=== PATIENT | female | born 1955 | race Two or more races ===

== ENCOUNTER 2022-12-08 12:05 | Emergency (ER) | payer OTHER ==
[~2022-12-08] VITALS: Ht 149.9 cm; Wt 87.0 kg
[2022-12-08 13:06] LABS: Basophils # (auto) 0.1 10 ^3/uL (0-0.2); Eosinophils # (auto) 0.2 10 ^3/uL (0-0.8); Lymphocytes # (auto) 2.6 10 ^3/uL (0.4-5.4); Mean Corpuscular Hgb Conc. 32.3 g/dL (32.0-36.0); Neutrophils # (auto) 6.1 10 ^3/uL (1.6-8.6); Red Cell Distribution Width 15.3 % (11.8-14.3)
[2022-12-08 13:07] LABS: Basophils % (auto) 1.1 % (0.0-2.0); Eosinophils % (auto) 2.1 % (0.0-7.0); Hemoglobin 13.6 g/dL (12.2-16.2); Lymphocytes % (auto) 27.6 % (10.0-50.0); Mean Corpuscular Volume 80.5 fL (80.0-100.0); Monocytes # (auto) 0.5 10 ^3/uL (0-1.3); Neutrophils % (auto) 64.2 % (37.0-80.0); Red Blood Cells 5.21 10^6/uL (4.0-5.20); White Blood Cell 9.5 10^3/uL (4.4-10.8)
[2022-12-08 13:20] LABS: INR 1.03 (0.9-1.15); Partial Thromboplastin Time 29.6 SEC (24.5-34.5); Prothrombin Time 10.8 sec (9.3-11.8)
[2022-12-08 14:12] LABS: Alanine Aminotransferase 59 U/L (7-40); Albumin 4.3 g/dL (3.2-4.8); Alkaline Phosphatase 100 U/L (46-116); Anion Gap 5 (5-15); Aspartate Aminotransferase 53 U/L (13-40); BUN/Creatinine Ratio 14.3 (10.0-20.0); Bilirubin, Total 0.5 mg/dL (0.2-1.0); Blood Urea Nitrogen 10 mg/dL (9-23); Calcium 9.4 mg/dL (8.5-10.1); Carbon Dioxide 30 mmol/L (20-30); Chloride 102 mmol/L (98-107); Glucose 135 mg/dL (74-106); Potassium 3.9 mmol/L (3.5-5.1); Sodium 137 mmol/L (136-145); Total Protein 7.1 g/dL (5.7-8.2)
[2022-12-08 17:09] VITALS: BP 147/75; PULSE 86; RESP 18; TEMP 98.2; O2SAT 97
== END 2022-12-08 17:12 | disposition home or self-care (01) ==
LOC: ER 12:05
DX: I10 Essential (primary) hypertension (principal); R51.9 Headache, unspecified; R42 Dizziness and giddiness; Z88.6 Allergy status to analgesic agent; Z79.01 Long term (current) use of anticoagulants
CPT/HCPCS: 36415; 70450; 71045; 80053; 84484; 85025; 85610; 85730; 93005

== ENCOUNTER → 2024-02-28 | Outpatient (CLI) | payer MEDICARE ==
[2024-02-28 11:27] LABS: Basophils # (auto) 0.1 10 ^3/uL (0-0.2); Basophils % (auto) 1.1 % (0.0-2.0); Eosinophils # (auto) 0.3 10 ^3/uL (0-0.8); Hemoglobin 14.5 g/dL (12.2-16.2); Lymphocytes # (auto) 2.3 10 ^3/uL (0.4-5.4); Monocytes # (auto) 0.3 10 ^3/uL (0-1.3); Nucleated Red Blood Cells % 0.1 %
[2024-02-28 11:29] LABS: Eosinophils % (auto) 3.9 % (0.0-7.0); Lymphocytes % (auto) 32.1 % (10.0-50.0); Mean Corpuscular Hemoglobin 26.3 pg (28.0-32.0); Mean Corpuscular Volume 79.6 fL (80.0-100.0); Monocytes % (auto) 4.1 % (0.0-12.0); Neutrophils # (auto) 4.2 10 ^3/uL (1.6-8.6); Neutrophils % (auto) 58.8 % (37.0-80.0); Platelet Count (auto) 334 10^3/uL (140-450); Red Blood Cells 5.53 10^6/uL (4.0-5.20); White Blood Cell 7.1 10^3/uL (4.4-10.8)
[2024-02-28 11:37] LABS: Urine Blood Negative /uL (Negative); Urine Clarity Turbid (Clear); Urine Color Yellow (Yellow); Urine Protein, UAD 1+ (Negative); Urine Specific Gravity 1.021 (1.001-1.035); Urine Urobilinogen Normal (Negative); Urine pH 6.5 (5.0-9.0)
[2024-02-28 11:44] LABS: Alanine Aminotransferase 22 U/L (7-40); Albumin 4.6 g/dL (3.2-4.8); Alkaline Phosphatase 110 U/L (46-116); Anion Gap 5 (5-15); Aspartate Aminotransferase 23 U/L (13-40); BUN/Creatinine Ratio 12.3 (10.0-20.0); Bilirubin, Total 0.5 mg/dL (0.2-1.0); Blood Urea Nitrogen 9 mg/dL (9-23); Calcium 10.4 mg/dL (8.7-10.4); Carbon Dioxide 30 mmol/L (20-31); Chloride 104 mmol/L (98-107); Sodium 139 mmol/L (136-145); Total Protein 7.8 g/dL (5.7-8.2)
[2024-02-28 11:49] LABS: Cholesterol 252 mg/dL (< 200); Glucose 108 mg/dL (74-106)
[2024-02-28 11:50] LABS: HDL Cholesterol 62 mg/dL (40-59); LDL Cholesterol 169 mg/dL (< 100); Triglycerides 167 mg/dL (< 150)
[2024-02-28 12:28] LABS: Erythrocyte Sedimentation Rate 32 mm/hr (0-20)
[2024-02-28 12:42] LABS: Uric Acid 5.1 mg/dL (3.1-7.8)
[2024-02-29 07:06] LABS: Thyroid Peroxidase (TPO) Ab 12 IU/mL (0-34)
[2024-02-29 08:06] LABS: Complement C3 196 mg/dL (82-167); Rheumatoid Arthritis Factor 10.2 IU/mL (<14.0)
[2024-02-29 12:06] LABS: Anti-Nuclear Antibody Direct Negative (Negative); Anti-dsDNA Antibody <1 IU/mL (0-9); Antiscleroderma-70 Antibody <0.2 AI (0.0-0.9); RNP Antibody <0.2 AI (0.0-0.9); Sjogren's Anti-SS-A Antibody <0.2 AI (0.0-0.9); Sjogren's Anti-SS-B Antibody <0.2 AI (0.0-0.9); Smith Antibody <0.2 AI (0.0-0.9)
[2024-03-01 16:06] LABS: Actin (Smooth Muscle) Antibody 7 Units (0-19); Mitochondrial (M2) Antibody <20.0 Units (0.0-20.0)
[2024-03-03 09:06] LABS: Antiparietal Cell Antibody 1.4 Units (0.0-20.0)
== END | disposition home or self-care (01) ==
LOC: LAB 10:55
PROVIDERS: ATTEND Student in an Organized Health Care Education/Training Program
DX: I10 Essential (primary) hypertension (principal); R73.9 Hyperglycemia, unspecified; M25.50 Pain in unspecified joint; E55.9 Vitamin D deficiency, unspecified
CPT/HCPCS: 36415; 80053; 80061; 81003; 82306; 83036; 84443; 84550; 85025; 85652; 86160; 86225; 86235; 86376; 86431

== ENCOUNTER 2024-09-16 09:26 | Outpatient (CLI) | payer OTHER ==
[2024-09-16 11:00] LABS: Alanine Aminotransferase 18 U/L (7-40); Albumin 5.0 g/dL (3.2-4.8); Alkaline Phosphatase 108 U/L (46-116); Anion Gap 10 (5-15); BUN/Creatinine Ratio 14.3 (10.0-20.0); Blood Urea Nitrogen 11 mg/dL (9-23); Calcium 11.0 mg/dL (8.7-10.4); Carbon Dioxide 29 mmol/L (20-31); Chloride 102 mmol/L (98-107); Cholesterol 258 mg/dL (< 200); Glucose 108 mg/dL (74-106); HDL Cholesterol 63 mg/dL (40-59); Potassium 4.0 mmol/L (3.5-5.1); Sodium 141 mmol/L (136-145); Total Protein 8.0 g/dL (5.7-8.2); Triglycerides 176 mg/dL (< 150)
[2024-09-16 11:01] LABS: Bilirubin, Total 0.5 mg/dL (0.2-1.0)
[2024-09-16 11:34] LABS: Uric Acid 5.6 mg/dL (3.1-7.8)
[2024-09-16 12:21] LABS: Microalb/Creat Ratio, Urine 67.0
[2024-09-17 07:07] LABS: Hepatitis B Core Total Antibod Negative (Negative)
[2024-09-17 10:36] LABS: Hepatitis C Antibody Negative (Negative)
== END 2024-09-16 19:32 | disposition home or self-care (01) ==
LOC: LAB 09:26
PROVIDERS: ATTEND Student in an Organized Health Care Education/Training Program
DX: I10 Essential (primary) hypertension (principal); E11.9 Type 2 diabetes mellitus without complications; M79.7 Fibromyalgia; M15.0 Primary generalized (osteo)arthritis
CPT/HCPCS: 36415; 80053; 80061; 82043; 82570; 83036; 84550; 85652; 86141; 86200; 86705; 86803

== ENCOUNTER 2024-11-13 10:36 | Outpatient (CLI) | payer OTHER ==
[2024-11-13] MEDS ORDERED: ESOM20CA PO (10:56)
[2024-11-13] MEDS ORDERED: LOSA-534 PO (10:56)
[2024-11-13] MEDS ORDERED: ATOR10TA52 PO (10:56)
[2024-11-13] MEDS ORDERED: METF-490 PO (10:56)
[2024-11-13 11:11] LABS: Nucleated Red Blood Cells % 0.1 %
[2024-11-13 11:13] LABS: Hematocrit 45.5 % (36.0-46.0); Hemoglobin 14.9 g/dL (12.2-16.2); Mean Corpuscular Hemoglobin 25.9 pg (28.0-32.0); Mean Corpuscular Volume 78.8 fL (80.0-100.0)
[2024-11-13 11:15] LABS: Urine Protein, UAD Negative (Negative)
[2024-11-13 11:27] LABS: Alanine Aminotransferase 16 U/L (7-40); Albumin 4.6 g/dL (3.2-4.8); Alkaline Phosphatase 100 U/L (46-116); Anion Gap 9 (5-15); BUN/Creatinine Ratio 16.7 (10.0-20.0); Blood Urea Nitrogen 10 mg/dL (9-23); Calcium 9.7 mg/dL (8.7-10.4); Carbon Dioxide 30 mmol/L (20-31); Chloride 102 mmol/L (98-107); Cholesterol 152 mg/dL (< 200); Glucose 93 mg/dL (74-106); HDL Cholesterol 54 mg/dL (40-59); Potassium 3.7 mmol/L (3.5-5.1); Sodium 141 mmol/L (136-145); Total Protein 7.9 g/dL (5.7-8.2); Triglycerides 121 mg/dL (< 150)
[2024-11-13 11:28] LABS: Bilirubin, Total 0.5 mg/dL (0.2-1.0)
[2024-11-13 12:03] LABS: Microalb/Creat Ratio, Urine 92.0
== END 2024-11-13 17:00 | disposition home or self-care (01) ==
LOC: LAB 10:36
PROVIDERS: ATTEND Nurse Practitioner Family
DX: I10 Essential (primary) hypertension (principal); E78.5 Hyperlipidemia, unspecified; E55.9 Vitamin D deficiency, unspecified
CPT/HCPCS: 36415; 80053; 80061; 81001; 82043; 82306; 82570; 83036; 84443; 85025

== ENCOUNTER → 2024-11-15 | Day surgery (SDC) | payer OTHER ==
[2024-11-13 11:12] LABS: Mean Corpuscular Hemoglobin 26.0 pg (28.0-32.0)
[2024-11-13 11:15] LABS: Hematocrit 44.6 % (36.0-46.0); Hemoglobin 14.8 g/dL (12.2-16.2); Mean Corpuscular Volume 78.1 fL (80.0-100.0); Nucleated Red Blood Cells % 0.2 %
[2024-11-13 11:24] LABS: INR 1.03 (0.9-1.15); Partial Thromboplastin Time 31.3 SEC (24.5-34.5); Prothrombin Time 10.9 sec (9.3-11.8)
[~2024-11-15] VITALS: Ht 152.4 cm; Wt 81.6 kg
[~2024-11-15] MED LIST: ATOR10TA52 PO; ESOM20CA PO; FLUMAZENIL 0.1 MG/ML INJ 10ML MDV IV ONE; LOSA-534 PO; METF-490 PO; NALOXONE HCL 0.4 MG/ML VIAL ONE
[2024-11-15] MEDS: fentaNYL CITRATE 100 MCG/2 ML VL ONE (07:54)
[2024-11-15] MEDS: MIDAZOLAM HCL 2MG/2ML 2ml VIAL (1mg/ml) ONE ×2 (07:54→08:08)
--- NOTE | 2024-11-15 08:29 | DVHNC2 ---
Procedure - DATE OF PROCEDURE: 2024 SURGEON: DOREEN STEPHENSON MD REFERRING PROVIDER: DESIREE LORA MD PROCEDURE PERFORMED: 1. ESOPHAGOGASTRODUODENOSCOPY WITH BIOPSY UNDER CONSCIOUS SEDATION 2. COLONOSCOPY WITH COLD BIOPSY POLYPECTOMY UNDER CONSCIOUS SEDATION PRE-PROCEDURE DIAGNOSIS: 1. GERD 2. COLON CANCER SCREENING POSTPROCEDURE DIAGNOSIS 1. MILD EROSIVE ESOPHAGITIS , Z-LINE AT 36 CM 2. MILD EROSIVE GASTRITIS 3. HIATAL HERNIA 2 CM 4. INTERNAL HEMORRHOIDS 5. DIVERTICULOSIS, MILD 6. INCOMPLETE COLONOSCOPY TO HEPATIC FLEXURE DUE TO TORTUOSITY 7. SMALL RECTAL POLYP MEDICATIONS USED: 6 MG OF VERSED IV AND 100 MCG OF FENTANYL IV DETAILS OF THE PROCEDURE: Informed consent was obtained after risks, benefits, and alternatives, were discussed at length with the patient. The patient gave consent to the procedure as well as the medication used for sedation. The patient was placed in the left lateral decubitus position. An Olympus endoscope was inserted into the oropharynx and advanced into the esophagus, then into the stomach, then into the duodenal bulb and duodenum. The duodenal bulb and duodenum were normal. The scope was then withdrawn. The patient had mild erosive gastritis, biopsies were taken. The scope was then withdrawn retroflexion showed a small hiatal hernia. The scope was then withdrawn the Z-line was at 36 cm. The patient had mild erosive esophagitis. The scope was then withdrawn and procedure completed. The patient tolerated procedure well The patient remained in the left lateral decubitus position. Digital rectal exam showed internal and external hemorrhoids. An Olympus variable torsion pediatric colonoscope was inserted into the rectum and advanced to the sigmoid colon. The colon was tortuous. I was not able to advance the scope safely beyond this point despite pressure and changing the patient's position. The scope was then withdrawn and an Olympus endoscope was then inserted into the rectum and advanced to the hepatic flexure. I was not able to advance the scope beyond the hepatic flexure. The scope was then withdrawn. The patient had mild diverticulosis. There was tortuosity seen once again in the sigmoid colon there were no large polyps, masses, strictures or arteriovenous malformation seen. Patient had a 3 mm polyp seen on retroflexion removed with cold biopsy forceps. Patient also had small internal hemorrhoids. The patient tolerated the procedure well IMPRESSION: 1. MILD EROSIVE ESOPHAGITIS LA GRADE A, Z-LINE AT 36 CM 2. SMALL HIATAL HERNIA 3. MILD GASTRITIS 4. INCOMPLETE COLONOSCOPY TO THE HEPATIC FLEXURE DUE TO TORTUOSITY AND LIKELY PRIOR ABDOMINAL SURGERY WITH ADHESIONS. 5. SMALL INTERNAL HEMORRHOIDS 6. RECTAL POLYP RECOMMENDATIONS: 1. FOLLOW UP IN GI CLINIC FOR PROCEDURE AND PATHOLOGY RESULTS 2. PROTON PUMP INHIBITOR DAILY 3. ANTI-REFLUX PRECAUTIONS, WEIGHT LOSS, AVOID CAFFEINE AND SPICY FOOD, ALCOHOL, TOMATOES AND CITRUS 4. REPEAT COLONOSCOPY IN FIVE YEARS IF THE POLYP IS ADENOMATOUS AND 10 YEARS IF HYPERPLASTIC UNLESS OTHERWISE INDICATED BY BARIUM ENEMA 5. PATIENT WILL NEED BARIUM ENEMA FOR COMPLETENESS TO EVALUATE THE RIGHT COLON THAT WAS NOT SEEN DUE TO INCOMPLETE COLONOSCOPY I WOULD LIKE TO THANK DR. DESIREE LORA FOR THIS REFERRAL DOREEN STEPHENSON MD Nov 15, 2024 08:29
[2024-11-15 08:34] VITALS: PULSE 69; RESP 12; TEMP 97; O2SAT 95
[2024-11-15 09:15] VITALS: BP 140/71; PULSE 68; RESP 14; O2SAT 97
== END | disposition home or self-care (01) ==
LOC: GI 06:59
PROVIDERS: ATTEND Specialist
DX: Z12.11 Encounter for screening for malignant neoplasm of colon (principal); K62.1 Rectal polyp; K57.30 Diverticulosis of large intestine without perforation or abscess without bleeding; K64.8 Other hemorrhoids; K63.89 Other specified diseases of intestine; K29.50 Unspecified chronic gastritis without bleeding; K21.9 Gastro-esophageal reflux disease without esophagitis; K44.9 Diaphragmatic hernia without obstruction or gangrene; K22.10 Ulcer of esophagus without bleeding; I10 Essential (primary) hypertension; J45.909 Unspecified asthma, uncomplicated; E11.9 Type 2 diabetes mellitus without complications; M19.90 Unspecified osteoarthritis, unspecified site; F43.10 Post-traumatic stress disorder, unspecified; E78.00 Pure hypercholesterolemia, unspecified; Z79.899 Other long term (current) drug therapy; Z98.890 Other specified postprocedural states; Z88.0 Allergy status to penicillin; Z88.8 Allergy status to other drugs, medicaments and biological substances; Z88.5 Allergy status to narcotic agent
CPT/HCPCS: 43239; 45380; 82962; 85610; 85730; 88305; 88342; J2250; J3010; 99152; 99153

== ENCOUNTER 2025-01-02 13:45 | Emergency (ER) | payer OTHER ==
[~2025-01-02] VITALS: Ht 154.9 cm; Wt 81.8 kg
[~2025-01-02 13:45] MED LIST changes: -FLUMAZENIL 0.1 MG/ML INJ 10ML MDV IV ONE; -NALOXONE HCL 0.4 MG/ML VIAL ONE
--- NOTE | 2025-01-02 14:26 | ED.PDOC ---
Eye-HPI HPI Comments A 69 YEAR OLD FEMALE PRESENTS TO THE ED WITH COMPLAINT OF BILATERAL EAR PAIN, SORE THROAT, AND LEFT EYE REDNESS. PATIENT STATES SHE HAS BEEN EXPERIENCING BILATERAL EAR PAIN AND A SORE THROAT OFTEN THE PAST 1 MONTH. PATIENT REPORTS SHE HAS BEEN PRESCRIBED ANTIBIOTICS FOR THIS ISSUE, BUT NOTES THERE HAS BEEN NO IMPROVEMENT. PATIENT NOTES THAT SHE BEGAN TO EXPERIENCE LEFT EYE REDNESS AND IRRITATION OVER THE LAST 2 DAYS. PATIENT DENIES VISION CHANGES, FEVER, CHILLS, SHORTNESS OF BREATH, CHEST PAIN, ABDOMINAL PAIN, NAUSEA, VOMITING, HEADACHE, OR OTHER COMPLAINTS. NO OTHER SYMPTOMS OR MODIFYING FACTORS AT THIS TIME. PATIENT IS ALERT, ORIENTED X 4, AND HAS STEADY GAIT. Chief Complaint: Earache Time Seen by MD: 13:58 Primary Care Provider: unknown Reviewed Notes: Nurses Notes, Medications, Allergies Allergies: Coded Allergies: Morphine (Verified Allergy, Mild, 12/08/22) Promethazine (Verified Allergy, Mild, 12/08/22) Uncoded Allergies: PENICILLIN (Allergy, Mild, 12/08/22) Home Meds Active Scripts Prednisone (Prednisone) 20 Mg Tab, 40 MG PO DAILY, #20 TAB Prov:ALE LEZAMA 01/02/25 Acetaminophen (Tylenol Extra Strength Fo) 500 Mg Tab, 1000 MG PO BID, #30 TAB Prov:ALE LEZAMA 01/02/25 Sulfamethoxazole W/Trimethopri (Bactrim Ds Tablet) 1 Tab Tb, 1 TAB PO BID for 10 Days, #20 TAB Prov:ALE LEZAMA 01/02/25 Reported Medications Metformin Hydrochloride (METFORMIN HCL ER) 1,000 Mg Tab, 1 TAB PO DAILY, #90 TAB 3 Refills 11/13/24 Esomeprazole Magnesium Trihydr (Nexium) 20 Mg Cap, 1 CAP PO DAILY, #90 CAP 3 Refills 11/13/24 Losartan Potassium (Losartan Potassium) 50 Mg Tab, 1 TAB PO DAILY, #90 TAB 3 Refills 11/13/24 Atorvastatin Calcium (ATORVASTATIN CALCIUM) 10 Mg Tab, 1 TAB PO DAILY, #90 TAB 3 Refills 11/13/24 Information Source: Patient Mode of Arrival: Ambulatory Timing: Days, Weeks Duration: Since onset, Days Prehospital treatment: None Quality: Pain, Red Eye Location: Left Lids: Normal Conjunctiva: Normal Cornea: Normal EOM: Normal Fundus: Normal Anterior chamber: Normal Mouth Location: Pharynx Mouth: Normal ENT Ear Exam: Normal, Red, Bulging, Normal Nose: Normal Sinuses: Normal Oropharynx: Tonsillar hypertrophy, Red Onset: Spontaneous Throat Exposed to: None History of: None Last Tetanus: Unknown Modifying factors: Nothing Associated signs and symptoms: Sore Throat, Ear Pain Past Medical History PAST MEDICAL HISTORY: HTN Surgical History: Denies all surgeries MANAGER COSTING History: Denies all MANAGER COSTING Hx Family History Family History: Reviewed,noncontributory to illness Social History Smoker: Non-Smoker Alcohol: Denies ETOH Use Drugs: Denies Drug Use Lives In: Home Constitutional: denies: chills, diaphoresis, fatigue, fever, malaise, sweats, weakness, others EENTM: reports: ear pain, ear ringing, eye redness, throat pain, throat swelling; denies: blurred vision, double vision, ear bleeding, ear discharge, ear drainage, eye pain, hearing loss, mouth pain, mouth swelling, nasal discharge, nose bleeding, nose congestion, nose pain, photophobia, tearing, voice changes, others Respiratory: denies: cough, hemoptysis, orthopnea, SOB at rest, shortness of breath, SOB with excertion, stridor, wheezing, others Cardiovascular: denies: chest pain, dizzy spells, diaphoresis, Dyspnea on exertion, edema, irregular heart beat, left arm pain, lightheadedness, palpitations, PND, syncope, others Gastrointestinal: denies: abdomen distended, abdominal pain, blood streaked bowels, constipated, diarrhea, dysphagia, difficulty swallowing, hematemesis, melena, nausea, poor appetite, poor fluid intake, rectal bleeding, rectal pain, vomiting, others Genitourinary: denies: abnormal vagina bleeding, burning, dyspareunia, dysuria, flank pain, frequency, hematuria, incontinence, pain, , vagina discharge, urgency, others Neurological: denies: dizziness, fainting, headache, left sided numbness, left sided weakness, numbness, paresthesia, pre-existing deficit, right sided numbness, right sided weakness, seizure, speech problems, tingling, tremors, weakness, others Musculoskeletal: denies: back pain, gout, joint pain, joint swelling, muscle pain, muscle stiffness, neck pain, others Integumetry: denies: bruises, change in color, change in hair/nails, dryness, laceration, lesions, lumps, rash, wounds, others Allergic/Immunocompromised: denies: Difficulty Healing, Frequent Infections, Hives, Itching, others Hematologic/Lymphatic: denies: anemia, blood clots, easy bleeding, easy bruising, swollen glands, others Endocrine: denies: excessive hunger, excessive sweating, excessive thirst, excessive urination, flushing, intolerance to cold, intolerance to heat, unexplained weight gain, unexplained weight loss, others Psychiatric: denies: anxiety, bipolar disorder, depression, hopeless, panic disorder, schizophrenia, sleepless, suicidal, others All Other Systems: Reviewed and Negative Physical Exam General Appearance: No Apparent Distress, Normal HEENT: PERRL/EOMI, Pharyngeal Erythema (TONSILLAR SWELLING, NO EXUDATES. ), TM Abnormal (L) (MILD ERYTHEMA AND DULL WITH EFFUSION OF LEFT TM, NO BLEEDING AND BLOOD CLOTS. ), TM Abnormal (R) (ERYTHEMA AND DULL WITH EFFUSION OF RIGHT TM, NO BLEEDING AND BLOOD CLOTS. ), Other (LEFT SUBCONJUNCTIVA HEMORRHAGE WITH GREEN DISCHARGE. ) Neck: Full Range of Motion, Non-Tender, Normal, Normal Inspection Respiratory: Chest Non-Tender, Lungs Clear, No Accessory Muscle Use, No Respiratory Distress, Normal Breath Sounds Cardiovascular: No Edema, No JVD, No Murmur, No Gallop, Normal Peripheral Pulses, Regular Rate/Rhythm Breast Exam: Deferred Gastrointestinal: No Organomegaly, Non Tender, No Pulsatile Mass, Normal Bowel Sounds, Soft Genitalia: Deferred Pelvic: Deferred Rectal: Deferred Extremities: No calf tenderness, Normal capillary refill, Normal inspection, Normal range of motion, Non-tender, No pedal edema Musculoskeletal : Apperance: Normal Neurologic: Alert, roll sheeting cutter II-XII nml as Tested, No Motor Deficits, Normal Affect, Normal Mood, No Sensory Deficits Cerebellar Function: Normal Reflexes: Normal Skin: Dry, Normal Color, Warm Peripheral Pulses: 2+ carotid (R), 2+ carotid (L) Lymphatic: No Adenopathy Was a procedure done? Was a procedure done?: No EENT DIFF Eye: Conjunctivitis, Allergic, Bacterial, Viral, Hordeolum (stye) Ear: Cerumen Impaction, Otitis Externa, Otitis Media, Dental, Pharyngitis, Sinusitis Nose: N/A Mouth: N/A Sore Throat: Pharyngitis, Streptococcal, Viral Pharyngitis, URI X-Ray, Labs, Meds, VS Vital Signs Date Time Temp Pulse Resp B/P (MAP) Pulse Ox O2 Delivery O2 Flow Rate FiO2 01/02/25 13:46 98.5 92 18 128/90 97 98.5 Current Medications Medications (Trade) Dose Ordered Sig/Vahe Route Start Time Stop Time Status Last Admin Ceftriaxone Sodium (Rocephin) 1,000 mg ONCE ONCE IM 01/02/25 14:30 01/02/25 14:31 DC 01/02/25 14:48 Methylprednisolone Sodium Succinate (Solu Medrol) 125 mg ONCE ONCE IM 01/02/25 14:30 01/02/25 14:31 DC 01/02/25 14:49 X-Ray, Labs, Meds, VS Comment EXTERNAL MEDICAL RECORDS REVIEWED: [NONE] INDEPENDENT HISTORIANS: [NONE] SOCIAL DETERMINANTS OF HEALTH: [NONE] LABS ORDERED: NONE REVIEWED AND INTERPRETED RESULTS: NONE IMAGING ORDERED: NONE TREATMENTS ORDERED: ROCEPHIN 1 G IM PROCEDURES PERFORMED: NONE CRITICAL CARE TIME: NONE I HAVE DISCUSSED THE PATIENT WITH THE ATTENDING PHYSICIAN DR. BRUNNER AND HE AGREES WITH THE PATIENT'S PLAN OF CARE AND DISPOSITION. BASED ON HISTORY OF PRESENT ILLNESS, AND PHYSICAL EXAM, PATIENT WILL BE DISCHARGED HOME. DISCUSSED PLAN FOR DISCHARGE HOME WITH RX [PREDNISONE AND TOBREX EYEDROPS]. MEDICATION WARNINGS GIVEN. SHARED DECISION MAKING: PATIENT INSTRUCTED TO FOLLOW UP WITH PRIMARY CARE PROVIDER IN 1-2 DAYS FOR RE-EVALUATION OF SYMPTOMS. PATIENT VERBALIZES UNDERSTANDING TO RETURN TO ED FOR NEW OR WORSENING SYMPTOMS OR IF FOLLOW UP WITH PCP CANNOT BE OBTAINED. PATIENT FEELS COMFORTABLE GOING HOME AT THIS TIME. ALL QUESTIONS ADDRESSED AT TIME OF DISCHARGE. Time of 1ST Reevaluation: 15:11 Reevaluation 1ST: Improved Patient Education/Counseling: Diagnosis, Treatment, Need For Follow Up Family Education/Counseling: Diagnosis, Treatment, Need For Follow Up Medical Screening: No EMC Exist At This Time SEPSIS Sepsis Screen Date sepsis recognized/suspect: Jan 02, 2025 Time Sepsis recognized/suspect: 1348 Recent Procedure: No On Antibiotic Therapy: No Respiratory Rate >20: No Heart Rate >90: Yes Temp<36 C (96.8 F) or >38.3 C: No SBP <90 or MAP <65 mmHG: No New Acute Mental Status Change: No Is the patient on CPAP, BIPAP,: No Vital Signs Date Time Temp Pulse Resp B/P (MAP) Pulse Ox O2 Delivery O2 Flow Rate FiO2 01/02/25 13:46 98.5 92 18 128/90 97 98.5 Medications Medications Dose Ordered Sig/Vahe Route Start Time Stop Time Status Last Admin Dose Admin Ceftriaxone Sodium 1,000 mg ONCE ONCE IM 01/02/25 14:30 01/02/25 14:31 DC 01/02/25 14:48 Methylprednisolone Sodium Succinate 125 mg ONCE ONCE IM 01/02/25 14:30 01/02/25 14:31 DC 01/02/25 14:49 Departure 1 Departure Time of Disposition: 15:20 Impression: Primary Impression: Otitis media of both ears Qualified Codes: H65.06 - Acute serous otitis media, recurrent, bilateral Additional Impressions: Acute tonsillitis Qualified Codes: J03.90 - Acute tonsillitis, unspecified Acute conjunctivitis of left eye Qualified Codes: H10.32 - Unspecified acute conjunctivitis, left eye Disposition: HOME / SELF CARE / HOMELESS Condition: Stable Additional Instructions: FOLLOW-UP WITH PCP IN 1 TO 2 DAYS FOR REFERRAL TO ENT SPECIALIST. TAKE MEDICATIONS PRESCRIBED. RETURN TO ED FOR ANY NEW OR WORSENING SYMPTOMS. e-Prescriptions Tobramycin Sulfate (Tobrex) [address] 2 DROP OP QID, #5 ML Prov: ALE LEZAMA 01/02/25 Prednisone (Prednisone) 20 Mg Tab 40 MG PO DAILY, #20 TAB Prov: ALE LEZAMA 01/02/25 Acetaminophen (Tylenol Extra Strength Fo) 500 Mg Tab 1000 MG PO BID, #30 TAB Prov: ALE LEZAMA 01/02/25 Sulfamethoxazole W/Trimethopri (Bactrim Ds Tablet) 1 Tab Tb 1 TAB PO BID for 10 Days, #20 TAB Prov: ALE LEZAMA 01/02/25 Discharged With: Self Critical Care Note Critical Care Time?: No Stability Stability form required: No I personally scribed for ALE LEZAMA ([email or web address]) on 01/02/25 at 14:26. Electronically submitted by Shay Parham ([email or web address]). ALE LEZAMA Jan 02, 2025 14:26
[2025-01-02] MEDS: cefTRIAXone SOD 1,000 MG VL IM ONE (14:48)
[2025-01-02] MEDS: methylPREDNISolone SOD SUCC 125 MG/2 ML VL IM ONE (14:49)
[2025-01-02] MEDS ORDERED: ACET-1304 PO (15:03)
[2025-01-02] MEDS ORDERED: PRED20TA2 PO (15:03)
[2025-01-02] MEDS ORDERED: BACDST PO (15:03)
[2025-01-02 15:11] VITALS: BP 145/66; PULSE 91; RESP 18; TEMP 98.3; O2SAT 96
[2025-01-02] MEDS ORDERED: TOB03OS OP (15:12)
== END 2025-01-02 15:14 | disposition home or self-care (01) ==
LOC: ER 13:45
DX: H66.93 Otitis media, unspecified, bilateral (principal); H10.32 Unspecified acute conjunctivitis, left eye; J03.90 Acute tonsillitis, unspecified; I10 Essential (primary) hypertension; Z79.899 Other long term (current) drug therapy; Z79.84 Long term (current) use of oral hypoglycemic drugs; Z88.5 Allergy status to narcotic agent; Z79.52 Long term (current) use of systemic steroids; Z88.0 Allergy status to penicillin
CPT/HCPCS: 96372; 99284; J0696; J2919

== ENCOUNTER 2025-02-10 08:03 | Outpatient (CLI) | payer OTHER ==
[~2025-02-10 08:03] MED LIST changes: +ACET-1304 PO; +BACDST PO; +PRED20TA2 PO; +TOB03OS OP
[2025-02-10 08:34] LABS: Hematocrit 42.5 % (36.0-46.0); Hemoglobin 13.7 g/dL (12.2-16.2); Mean Corpuscular Hemoglobin 26.0 pg (28.0-32.0); Mean Corpuscular Volume 80.5 fL (80.0-100.0); Nucleated Red Blood Cells % 0.1 %
[2025-02-10 09:27] LABS: Urine Protein, UAD 1+ (Negative)
[2025-02-10 09:42] LABS: Alanine Aminotransferase 12 U/L (7-40); Alkaline Phosphatase 94 U/L (46-116); Anion Gap 11 (5-15); BUN/Creatinine Ratio 15.6 (10.0-20.0); Blood Urea Nitrogen 12 mg/dL (9-23); Calcium 9.9 mg/dL (8.7-10.4); Carbon Dioxide 29 mmol/L (20-31); Chloride 103 mmol/L (98-107); Glucose 100 mg/dL (74-106); Potassium 3.7 mmol/L (3.5-5.1); Sodium 143 mmol/L (136-145)
[2025-02-10 09:43] LABS: Total Protein 7.6 g/dL (5.7-8.2)
[2025-02-10 09:44] LABS: Albumin 4.5 g/dL (3.2-4.8); Bilirubin, Total 0.4 mg/dL (0.2-1.0); HDL Cholesterol 53 mg/dL (40-59)
[2025-02-10 09:45] LABS: Microalb/Creat Ratio, Urine 32.0
[2025-02-10 09:53] LABS: Cholesterol 259 mg/dL (< 200); Triglycerides 163 mg/dL (< 150)
== END 2025-02-10 17:00 | disposition home or self-care (01) ==
LOC: LAB 08:03
PROVIDERS: ATTEND Nurse Practitioner Family
DX: E78.5 Hyperlipidemia, unspecified (principal); E55.9 Vitamin D deficiency, unspecified; I10 Essential (primary) hypertension; E11.9 Type 2 diabetes mellitus without complications
CPT/HCPCS: 36415; 80053; 80061; 81001; 82043; 82306; 82570; 83036; 84443; 85025